=== PATIENT | male | born 1980 | race Two or more races ===

== ENCOUNTER 2017-08-19 19:52 | Emergency (ER) | payer MEDICAID ==
[~2017-08-19] VITALS: Ht 177.8 cm; Wt 81.6 kg
--- NOTE | 2017-08-19 19:52 | NUR ---
TO BED 3 BIB PARAMEDICS C/O MIDSTERNAL CP X5 HRS [facility]. PT WAS GIVEN ASPIRIN 162MG AND NITRO SPRAY X3 BY EMS [facility]. PT AAOX4 NO ACUTE DISTRESS NOTED, RESP EVEN AND UNLABORED. PLACE PT ON CARDIAC MONITORING, CONTINUOUS POX. SL 18G TO LAC [facility] SANDER. PT DENIES PAIN OR DISCOMFORT AT THIS TIME. PENDING ER MD MCPHERSON.
[2017-08-19] MEDS ORDERED: IV NS 0.9% 1,000 ML BAG IV ONE (20:00)
[2017-08-19] MEDS ORDERED: ONDANSETRON HCL/PF 4 MG/2 ML VIAL IVP ONE (20:00)
[2017-08-19 20:18] LABS: BASOPHILS # (AUTO) 0.1 /CMM (0.0-0.2); BASOPHILS % (AUTO) 0.7 % (0.0-2.0); EOSINOPHILS # (AUTO) 0.2 /CMM (0.0-0.7); EOSINOPHILS % (AUTO) 2.2 % (0.0-6.0); HEMATOCRIT 46 % (39-51); HEMOGLOBIN 15.6 g/dL (13.5-17.5); LYMPHOCYTES # (AUTO) 2.9 /CMM (0.8-4.8); LYMPHOCYTES % (AUTO) 29.1 % (20.0-44.0); MEAN CORPUSCULAR HEMOGLOBIN 29 PG (26.0-33.0); MEAN CORPUSCULAR HGB CONC 34 g/dl (31.0-36.0); MEAN CORPUSCULAR VOLUME 85 fL (80-96); MONOCYTES # (AUTO) 0.6 /CMM (0.1-1.30); MONOCYTES % (AUTO) 6.1 % (2.0-12.0); NEUTROPHILS # (AUTO) 6.1 /CMM (1.8-8.9); NEUTROPHILS % (AUTO) 61.9 % (43.0-81.0); PLATELET COUNT (AUTO) 258 /CMM (150-450); RDW COEFFICIENT OF VARIATION 11.9 (11.5-15.0); RED BLOOD CELL COUNT(AUTO) 5.37 MIL/uL (4.5-6.0); WHITE BLOOD COUNT (AUTO) 9.9 K/uL (4.3-11.0)
[2017-08-19] MEDS ORDERED: ONDANSETRON HCL/PF 4 MG/2 ML VIAL ONE (20:22)
[2017-08-19 20:27] LABS: CALCIUM, SERUM 9.1 mg/dL (8.5-10.1); CARBON DIOXIDE 23 mmol/L (21-32); CHLORIDE 101 mmol/L (98-107); CREATININE 0.8 mg/dL (0.6-1.3); GLUCOSE 134 mg/dL (74-106); POTASSIUM 3.5 mmol/L (3.5-5.1); SODIUM SERUM 137 mmol/L (136-145); UREA NITROGEN, BLOOD 10 mg/dL (7-18)
--- NOTE | 2017-08-19 20:27 | NUR ---
PT MEDICATED BY RN PER ER MD ORDER.
[2017-08-19 20:32] LABS: INR 1.02 (0.87-1.13); PROTHROMBIN TIME 10.6 SECS (9.5-12.7)
[2017-08-19 20:36] LABS: TROPONIN I < 0.017 ng/mL (0.00-0.056)
[2017-08-19 21:33] VITALS: BP 146/86
--- NOTE | 2017-08-19 21:33 | NUR ---
IV removed. Catheter intact and site benign. Pressure and 4x4 applied to site. No bleeding noted. Patient discharged to home in stable condition. Written and verbal after care instructions given. Patient verbalizes understanding of instruction. ambulatory with a steady gait
== END 2017-08-19 21:34 | disposition home or self-care (01) ==
LOC: ER 19:53
DX: R07.89 Other chest pain (principal); I10 Essential (primary) hypertension; E11.9 Type 2 diabetes mellitus without complications; Z79.84 Long term (current) use of oral hypoglycemic drugs
CPT/HCPCS: 36415; 71010; 80048; 84484; 85025; 85730; 93005; 96361; 96374; 99285; A4606; J2405; J7030; Z7610

== ENCOUNTER 2018-03-28 05:23 | Emergency (ER) | payer MEDICAID ==
[~2018-03-28] VITALS: Ht 185.4 cm; Wt 117.9 kg
--- NOTE | 2018-03-28 05:23 | NUR ---
PT BBSELF C/C R FOOT PAIN S/P PLAYING SOCCER AND TWISTING FOOT X 1DAY. C/O FOOT SWELLING AND PAIN 07/26. A/OX4 WITH GF AT BEDSIDE. VSS NAD WILL CONTINUE TO MONITOR FOR ANY CHANGES DURING THE SHIFT. WILL CONTINUE TO MONITOR FOR ANY CHANGES DURING THE SHIFT.
--- NOTE | 2018-03-28 05:24 | NUR ---
ER AT BEDSIDE FOR EVAL
[2018-03-28] MEDS ORDERED: IBUPROFEN 400 MG TABLET ONE (06:29)
[2018-03-28] MEDS ORDERED: oxyCODONE/APAP (5/325 MG) 1 UDTAB TABLET ONE (06:29)
[2018-03-28] MEDS ORDERED: IBUPROFEN 400 MG TABLET PO ONE (06:30)
[2018-03-28] MEDS ORDERED: oxyCODONE/APAP (5/325 MG) 1 UDTAB TABLET PO ONE (06:30)
[2018-03-28 08:17] VITALS: BP 128/68
== END 2018-03-28 08:18 | disposition home or self-care (01) ==
LOC: ER 05:23
DX: S93.421A Sprain of deltoid ligament of right ankle, initial encounter (principal); I10 Essential (primary) hypertension; E11.9 Type 2 diabetes mellitus without complications; F10.10 Alcohol abuse, uncomplicated; Z60.2 Problems related to living alone; X50.1XXA Overexertion from prolonged static or awkward postures, initial encounter; Y93.66 Activity, soccer; Y92.89 Other specified places as the place of occurrence of the external cause; Y99.8 Other external cause status
CPT/HCPCS: 29515; 73610; 99284; A4606; Z7610